=== PATIENT | male | born 1965 | race Caucasian/White ===

== ENCOUNTER 2017-07-23 10:47 | Emergency (ER) | payer SELFPAY ==
[2017-07-23 10:48] VITALS: BP 154/107; PULSE 76; RESP 16; TEMP 36.5; O2SAT 100; BMI 24.5
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
[2017-07-23] MEDS: HYDROcodone Bitartrate/Apap 5/325 Tablet PO (11:20)
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
[2017-07-23 12:04] VITALS: PULSE 103; RESP 16; O2SAT 97
== END 2017-07-23 12:05 | disposition home or self-care (01) ==
LOC: ED 11:35
PROVIDERS: Emergency Provider Emergency Medicine
DX: S22.42XA Multiple fractures of ribs, left side, initial encounter for closed fracture (principal); R91.1 Solitary pulmonary nodule; R05 Cough; V19.49XA Pedal cycle driver injured in collision with other motor vehicles in traffic accident, initial encounter; Y93.9 Activity, unspecified; Y92.9 Unspecified place or not applicable; Z72.89 Other problems related to lifestyle; F17.210 Nicotine dependence, cigarettes, uncomplicated
CPT/HCPCS: 71101; 99283

== ENCOUNTER 2017-08-09 15:14 | Emergency (ER) | payer MEDICAID, SELFPAY ==
[2017-08-09 15:15] VITALS: BP 153/86; PULSE 100; RESP 16; TEMP 36.8; O2SAT 97; BMI 23.8
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
[2017-08-09] MEDS: HYDROcodone Bitartrate/Apap 5/325 Tablet PO (17:01)
[2017-08-09] MEDS: Ondansetron ODT 4 MG Tablet PO (17:01)
--- NOTE | 2017-08-09 17:26 | ED.DEP ---
ED Disposition - Plan for ED Patient: Chief Complaint: Back Instructions: ED Sprain Strain Lumbar Referrals: Care Physician,No Primary [Primary Care Provider] - [facility] [NON-STAFF] -
[2017-08-09 17:32] VITALS: RESP 18
== END 2017-08-09 17:32 | disposition home or self-care (01) ==
PROVIDERS: Emergency Provider Emergency Medicine
DX: M54.5 Low back pain (principal); M54.6 Pain in thoracic spine; R06.00 Dyspnea, unspecified; Z87.81 Personal history of (healed) traumatic fracture; Z72.0 Tobacco use
CPT/HCPCS: 71111; 72072; 72100; 99283